=== PATIENT | male | born 1970 | race Caucasian/White ===

== ENCOUNTER 2016-10-14 15:34 | Emergency (ER) | payer OTHER ==
[~2016-10-14] VITALS: Ht 185.4 cm; Wt 145.0 kg
[~2016-10-14 15:34] MED LIST: LISI-363 PO; MMW SS; PENI500T PO
[2016-10-14 15:43] VITALS: BP 127/64; PULSE 86; RESP 18; O2SAT 95
[2016-10-14 15:49] VITALS: BP 135/76; PULSE 89; RESP 18; O2SAT 98
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
[2016-10-14] MEDS ORDERED: LIDOCAINE 1%/EPINEPHrine 1:100,000 SOLN 20 ML VIAL INFIL ONE (16:00)
[2016-10-14] MEDS ORDERED: TETANUS/DIPHTHERIA TOXOID ADULT 0.5 ML VIAL IM ONE (16:00)
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
[2016-10-14 17:12] VITALS: BP 178/93; PULSE 86; RESP 23; O2SAT 95
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
[2016-10-14] MEDS ORDERED: CLINDAMYCIN PHOS 600 MG/4 ML VIAL IM ONE (17:30)
[2016-10-14] MEDS ORDERED: HYDR-3533 PO (17:46)
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
[2016-10-14] MEDS ORDERED: CLIN1CAP6 PO (17:54)
[2016-10-14 18:48] VITALS: BP 157/94
== END 2016-10-14 18:52 | disposition home or self-care (01) ==
LOC: NEPC 15:34
DX: S62.231A Other displaced fracture of base of first metacarpal bone, right hand, initial encounter for closed fracture (principal); S81.012A Laceration without foreign body, left knee, initial encounter; M25.522 Pain in left elbow; V28.4XXA Motorcycle driver injured in noncollision transport accident in traffic accident, initial encounter; Y92.415 Exit ramp or entrance ramp of street or highway as the place of occurrence of the external cause; Z23 Encounter for immunization
CPT/HCPCS: 12001; 70450; 71010; 72125; 73080; 73090; 73130; 73564; 90471; 90714; 96372; 99284; L3808